=== PATIENT | male | born 1950 | race Caucasian/White ===

== ENCOUNTER 2017-01-26 09:13 | Inpatient (IN) | payer OTHER, MEDICARE ==
[~2017-01-26] VITALS: Ht 171.4 cm; Wt 120.6 kg
--- NOTE | ~2017-01-26 | CATH ---
Cardiac Interventional Report Demographics Patient Name AMAN MCCORMACK JR Gender Male Date of 1950 Age 66 year(s) Patient Number [id number] Date of Study 02/05/2017 Visit Number [id number] Room Number G6317 [place] [id number] Ht 170.18 cm Wt 114.31 kg Referring Liana Primary Physician Physician Erika Garcia Performing Liana Secondary Physician Physician Erika TATE Diagnostic Assisting Physician Physician Interventional Liana Physician Security Tech Physician Erika TATE Findings and Conclusions Interventional Findings and Conclusion PCI- large anterior and lateral ischemia D/W CTS, per their recommendation and discussion with patient and his PCI was planned. PCI ostial/prox LAD 50>0% mid LAD 80>0% mid/distal 80>0% mid LCFX 80>% Interventional Recommendations Routine perclose precautions DAPT 1 yr or greater Risk factor modification Procedure Description The patient was brought to the diagnostic cardiac catheterization-EP laboratory in the fasting, non-sedated state. Informed consent was obtained in the written and verbal form after the risks and benefits were explained. The patient had no further questions and agreed to proceed. The planned puncture-incision site(s) were shaved and prepped with Chloroprep and draped in the usual sterile manner. Conscious sedation and pain control medications were delivered by a registered nurse under physician guidance. Surface ECG rhythm, blood pressure measurement, and pulse oximetry were monitored throughout the procedure. iFR measurement was performed The vessel was entered with a guiding catheter. The iFR wire was normalized and then advanced across the lesion. Measurements were takenof LAD and CIRC Stent Placement: A guiding catheter was used to intubate the vessel. A 0.14 wire was used to cross the lesion. A Drug Eluting Stent was placed. Post placement angiograms were performed. Hemostasis: The sheath(s) was removed. Perclose(s) were tied and hemostasis was achieved. Interventional Cath Status: Urgent Procedure Procedure Type PCI procedure:Drug Eluting Coronary Stent:, LAD, CFX, Additional Imaging:, FFR/iFR:, Initial Vessel, Add'l Vessel Indications: Chest pain and Shortness of breath. The procedure was explained in detail to the patient. Risks, complications and alternative treatments were reviewed. Written consent was obtained. Angiographic Findings Dominance: Right Cardiac Arteries and Lesion Findings LAD: Lesion on Mid LAD: Distal subsection.80% stenosis 12 mm length reduced to 0%. Pre procedure LAURA II flow was noted. Post Procedure LAURA III flow was present. The guidewire cross was successful.A good run off was present.The lesion was diagnosed as a low risk lesion.Culprit lesion. Devices used - Promus Premier 2.25 x 12 Stent. 1 inflation(s) to a max pressure of: 14 hank. Lesion on Mid LAD: Mid subsection.0% stenosis 16 mm length reduced to 0%. Pre procedure LAURA II flow was noted. Post Procedure LAURA III flow was present. The guidewire cross was successful.A good run off was present.The lesion was diagnosed as a low risk lesion.Culprit lesion. Devices used - Emerge Balloon 2.5 x 15. 1 inflation(s) to a max pressure of: 10 hank. - Promus Premier 2.75 x 16 Stent. 1 inflation(s) to a max pressure of: 15 hank. Lesion on Prox LAD: Ostial.50% stenosis 12 mm length reduced to 0%. Pre procedure LAURA III flow was noted. Post Procedure LAURA III flow was present. The guidewire cross was successful.A good run off was present.The lesion was diagnosed as a low risk lesion.Culprit lesion. Devices used - Promus Premier 3.5 x 12 Stent. 2 inflation(s) to a max pressure of: 12 hank. LCx: Lesion on Mid CX: Mid subsection.80% stenosis 12 mm length reduced to 0%. Pre procedure LAURA III flow was noted. Post Procedure LAURA III flow was present. The guidewire cross was successful.A good run off was present.The lesion was diagnosed as a moderate risk lesion.Culprit lesion. Devices used - Emerge Balloon 3.0 x 12. 1 inflation(s) to a max pressure of: 6 hank. - Promus Premier 3.5 x 12 Stent. 1 inflation(s) to a max pressure of: 15 hank. - Verrata Pressure Wire. Number of passes: 1. Coronary Tree Procedure Data Procedure Date Date: 02/05/2017Start: 03:16 PMEnd: 04:51 PM Entry Locations - The Right Femoral artery access attempt was not successful. - Retrograde Percutaneous access was performed through the Left Femoral artery (Primary location). A 7 Fr sheath was inserted. Hemostasis was successfully obtained using Perclose ProGlide ([place]). Closure Comments: deployed by gabriel. Procedure Medications Order and Administration + + + + + !Time !Medication !Dosage !Route ! + + + + + 02/05/2017 03:00 !Fentanyl !50 mcg !I.V. ! !PM ! ! ! ! + + + + 02/05/2017 03:12 !Versed !1 mg !I.V. ! !PM ! ! ! ! + + + + + 02/05/2017 03:15 !Oxygen !2 l/min !NC ! !PM ! ! ! ! + + + + 02/05/2017 03:16 !Oxygen !4 l/min !NC ! !PM ! ! ! ! + + + + + !02/05/2017 03:17 !Oxygen !6 l/min !NC ! !PM ! ! ! ! + + + + + !02/05/2017 03:27 !Angiomax (Bivalirudin) !85 mg !I.V. bolus ! !PM !(ACC_5) ! ! ! + + + + + !02/05/2017 03:28 !Angiomax (Bivalirudin) !1.75 mg/kg/hr!I.V. drip ! !PM !(ACC_5) ! ! ! + + + + + 02/05/2017 03:30 !Integrilin (ACC_7) !20.4 mg !I.V. bolus ! !PM ! ! ! ! + + + + 02/05/2017 03:40 !Integrilin (ACC_7) !20.4 mg !I.V. bolus ! !PM ! ! ! ! + + + + + !02/05/2017 03:53 !Fentanyl !50 mcg !I.V. ! !PM ! ! ! ! + + + + + !02/05/2017 04:02 !Nitroglycerin !200 mcg !I.C. ! !PM ! ! ! ! + + + + + 02/05/2017 04:12 !Versed !1 mg !I.V. ! !PM ! ! ! ! + + + + + !02/05/2017 04:25 !Fentanyl !50 mcg !I.V. ! !PM ! ! ! ! + + + + + !02/05/2017 04:25 !Fentanyl !50 mcg !I.V. ! !PM ! ! ! ! + + + + + !02/05/2017 04:26 !Brilinta (Ticagrelor) !180 mg !P.O. ! !PM !(ACC_20) ! ! ! + + + + + !02/05/2017 04:26 !Angiomax (Bivalirudin) ! !I.V. drip ! !PM !(ACC_5) ! ! ! + + + + + !02/05/2017 04:33 !Integrilin (ACC_7) !2 mcg/kg/min !I.V. bolus ! !PM ! ! ! ! + + + + + Devices Used - A6 Fr. EBU 4 Guide Catheterwas used for:LAD Intervention. Contrast Material - Isovue [id number] ml Fluoroscopy Time: Diagnostic: 17:54 minutes. Total: 17:54 minutes. Fluoroscopy Dose: Diagnostic: 3783 mGy. Total: 3783 mGy. Estimated Blood Loss: 100 ml. Additional [facility] PCI Information PCI Indication:PCI for high risk Non-STEMI or unstable angina. Medical History Allergies - No known allergies. Risk Factors The patient risk factors include:obesity, hypercholesterolemia, hypertension, insulin-treated diabetes mellitus, last creatinine: 1.4 mg/dl, creatinine clearance: 86.18 ml/min, dyslipidemia and prior heart failure . Admission Data Admission Date: 01/26/2017 Admission Time: 10:54 AM Admit Source: Emergency department Insurance Payors: Medicare and [facility] [facility]. Admission Medications + +------+------+ +---------+ + + !Medication !Dosage!Times !Last !Last !Administered !Comments ! ! ! !Per !Delivery !Delivery ! ! ! ! ! !Day !Date !Time ! ! ! + +------+------+ +---------+ + + !Beta Tonja! ! !02/03/2017 !12:00 AM !Yes ! ! !(any) ! ! ! ! ! ! ! + +------+------+ +---------+ + + !Aspirin ! ! ! ! ! ! ! !(any) ! ! ! ! ! ! ! + +------+------+ +---------+ + + !Nitrates (iv! ! ! ! ! ! ! !or buccal) ! ! ! ! ! ! ! + +------+------+ +---------+ + + Clinical Evaluation Leading to Procedure Diagnosed on 02/03/2017 10:00 AM. - The patient's CAD presentation was assessed as: Non-STEMI. - Anti-anginal medications were prescribed during the past two weeks. The medication is: Beta Blockers. - The patient has been in a state of heart failure within the past two weeks. - The patient's heart failure status was assessed as NYHA Class IV. VA LV function assessed as:Abnormal. Ejection Fraction - 02/03/2017 - Method: Estimated. EF%: 21. Hemodynamics Condition: Rest O2 Consumption: Estimated: 260.53Heart Rate: 70 bpm Pressures (mmHg) +-----+ + !Site !Pressure ! +-----+ + !AO !154/69 (103) ! +-----+ + Shunts Oxygen Values O2 Capacity 141.44 O2 Consumption 260.53 Discharge Data Discharge Date: 02/07/2017 Hospital Status: Inpatient Signatures dtt: Erika Gaines dtd: 02/05/17 1516 Physician Self Edit
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
--- NOTE | ~2017-01-26 | ESTC ---
Cardiac Perfusion Imaging Demographics Patient Name AMAN MCCORMACK JR Gender Male Patient Number [id number] Race Visit Number [id number] Ethnicity [employer] Room Number G6218 Accession Number [id number] Height 691 inches Date of 1950 Weight 252 pounds Interpreting Liana James Date of study 01/29/2017 Physician Supervising /RORO James NM Technologist Tammy Watson MD Ordering Physician Liana James Stress MD emissions testing technician Stress ECG Reading Liana James Nurse Shanell Sousa Physician RN Brayan Sadler RN Procedure Procedure Type: Nuclear Stress Test:Cardiolite Stress Test Procedure Start time: 01/29/2017 00:00 Indications: Chest pain. Risk Factors The patient risk factors include:obesity, hypertension, insulin treated diabetes mellitus, dyslipidemia and prior heart failure . Conclusions Summary Enlarged LV. Large anterior,lateral and inferior moderate to severe ischemia. Basal small inferior severe defect consistent with prior NE. LVEF:37%. Inferior and basal anterior severe hypokinesia and moderate lateral hypokinesia. Stress Protocols Resting ECG Paced rythm. Pre-stress physical exam: Un changed. Predicted HR: 156 bpm ECG Findings No ECG changes suggestive of ischemia. Arrhythmias No rhythm abnormality. Symptoms CP. SOB. MILNER. Stress Interpretation Lexiscan cardiolite with normal hemodynamic response. No EKG changes of ischemia. No arrythmias. Imaging Results Applied corrections - Motion correction applied High risk findings Summed scores - Summed stress score: 17 - Summed rest score: 16 - Summed difference score: 1 Stress ejection Ejection fraction:37 % EDV :226 ml ESV :143 ml Stroke volume :83 ml LV mass :228 gr LV size:Enlarged LV LV systolic function impairment: Moderate Imaging Protocols Rest Stress Isotope:Tc99m Sestamibi IV Isotope: Tc99m Sestamibi IV Isotope dose:15.9 mCi Isotope dose:48 mCi Date:01/29/2017 07:52 Date:01/29/2017 10:00 Technique: SPECT Technique: Gated Supine SPECT Supine IV remains in place after procedure. Procedure Medications - Regadenoson (Lexiscan) 0.4 mg IV over 10-15 sec. I.V. . Medical History Admission Data Admission date: 01/26/2017 Admission Time: 10:54 Hospital Status: Inpatient. Signatures dtt: Erika Gaines dtd: 01/29/17 0000 Physician Self Edit
--- NOTE | ~2017-01-26 | CATH ---
Cardiac Diagnostic Report Demographics Patient Name AMAN MCCORMACK JR Gender Male Date of 1950 Age 66 year(s) Patient Number [id number] Date of Study 02/03/2017 Visit Number [id number] Room Number G63[address] [place] [id number] Ht 170.18 cm Wt 114.31 kg Referring Liana Primary Physician Physician Erika TATE Performing Liana Secondary Physician Physician Erika TATE Diagnostic Liana Assisting Physician Physician Erika TATE Interventional Physician Icu Registered Nurse Physician Findings and Conclusions Diagnostic Findings and Conclusion Severe 3 vessel disease LVEDP 21 Diagnostic Recommendations CTS consult Procedure Description The patient was brought to the diagnostic cardiac catheterization-EP laboratory in the fasting, non-sedated state. Informed consent was obtained in the written and verbal form after the risks and benefits were explained. The patient had no further questions and agreed to proceed. The planned puncture-incision site(s) were shaved and prepped with ChloraPrep and draped in the usual sterile manner. Conscious sedation, supplemental oxygen, and pain control medications were delivered by a registered nurse under physician guidance. Surface ECG rhythm, blood pressure measurement, and pulse oximetry were monitored throughout the procedure. Arterial access. The access site was infiltrated with lidocaine. The vessel was entered with the Seldinger technique. A sheath was advanced into the vessel and used for catheter placement. Selective left coronary angiography. A catheter was advanced into the left coronary vessel ostium under Fluoroscopic guidance. Contrast was injected by hand. Images were obtained in multiple projections. Selective right coronary angiography. A catheter was advanced into the right coronary vessel ostium under fluoroscopic guidance. Contrast was injected by hand. Images were obtained in multiple projections. Left heart catheterization. A catheter was advanced across the aortic valve to the left ventricle under fluoroscopic guidance. Resting hemodynamics were obtained. Arterial artery hemostasis was achieved. The patient was transferred to a regular nursing floor via cart accompanied by a nurse. The patient left the laboratory in stable condition. Procedure Procedure Type Diagnostic procedure:Angiography:, Coronary Angios w/[facility] Indications: Positive Nuclear: High. The procedure was explained in detail to the patient. Risks, complications and alternative treatments were reviewed. Written consent was obtained. Medications Reviewed with Patient prior to Procedure. Angiographic Findings Dominance: Right Cardiac Arteries and Lesion Findings LMCA: Abnormal.luminal irregularities LAD: Abnormal.Type III diffuse disease ISP 80% x 2 LCx: Abnormal.Large 2 om 80% focal lesion RCA: Abnormal.mid 100% , distal RCA fills faintly Procedure Data Procedure Date Date: 02/03/2017Start: 03:18 PMEnd: 04:23 PM Entry Locations - Retrograde Percutaneous access was performed through the Right Femoral artery (Primary location). A 7 Fr sheath was inserted. Hemostasis was successfully obtained using Angio-Seal STS PLUS ([place]). Closure Comments: by Cheyenne Sharp Procedure Medications Order and Administration + + + +-------+ !Time !Medication !Dosage !Route ! + + + +-------+ !02/03/2017 03:07 PM !Fentanyl !50 mcg !I.V. ! + + + +-------+ 02/03/2017 03:16 PM !Versed !1 mg !I.V. ! + + + +-------+ 02/03/2017 03:19 PM !Fentanyl !50 mcg !I.V. ! + + + +-------+ !02/03/2017 03:29 PM !Oxygen !2 l/min !NC ! + + + +-------+ Devices Used - A6 Fr. BS JL 4 Diag. Catheterwas used for:Left coronary angiography. - A6 Fr. BS JR 4 Diag. Catheterwas used for:Right coronary angiography. - A6 Fr. BS JL 5 Diag. Catheterwas used for:Left coronary angiography. Contrast Material - Isovue [id number] ml Fluoroscopy Time: Diagnostic: 5:30 minutes. Total: 5:30 minutes. Fluoroscopy Dose: Diagnostic: 1854 mGy. Total: 1854 mGy. Estimated Blood Loss: 5 ml. Medical History Allergies - No known allergies. Risk Factors The patient risk factors include:obesity, hypercholesterolemia, hypertension, insulin-treated diabetes mellitus, last creatinine: 1.4 mg/dl, creatinine clearance: 86.18 ml/min, dyslipidemia and prior heart failure . Admission Data Admission Date: 01/26/2017 Admission Time: 10:54 AM Admit Source: Emergency department Insurance Payors: Medicare and [employer] [facility]. Admission Medications + +------+------+ +---------+ + + !Medication !Dosage!Times !Last !Last !Administered !Comments ! ! ! !Per !Delivery !Delivery ! ! ! ! ! !Day !Date !Time ! ! ! + +------+------+ +---------+ + + !Beta Tonja! ! !02/03/2017 !12:00 AM !Yes ! ! !(any) ! ! ! ! ! ! ! + +------+------+ +---------+ + + !Aspirin ! ! ! ! ! ! ! !(any) ! ! ! ! ! ! ! + +------+------+ +---------+ + + !Nitrates (iv! ! ! ! ! ! ! !or buccal) ! ! ! ! ! ! ! + +------+------+ +---------+ + + Clinical Evaluation Leading to Procedure Diagnosed on 02/03/2017 10:00 AM. - The patient's CAD presentation was assessed as: Non-STEMI. - Anti-anginal medications were prescribed during the past two weeks. The medication is: Beta Blockers. - The patient has been in a state of heart failure within the past two weeks. - The patient's heart failure status was assessed as NYHA Class IV. VA LV function assessed as:Abnormal. Ejection Fraction - 02/03/2017 - Method: Estimated. EF%: 21. Hemodynamics Condition: Rest O2 Consumption: Estimated: 1415.10Heart Rate: 70 bpm Pressures (mmHg) +-----+ + !Site !Pressure ! +-----+ + !AO !157/23 (74) ! +-----+ + !LV !146/5 ,12 ! +-----+ + !LV !161/15 ,21 ! +-----+ + Shunts Oxygen Values O2 Capacity 141.44 O2 Consumption 1415.1 Discharge Data Discharge Date: 02/07/2017 Hospital Status: Inpatient Signatures dtt: Erika Gaines dtd: 02/03/17 1518 Physician Self Edit
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
--- NOTE | ~2017-01-26 | HP ---
PATIENT'S NAME: KSENIA NEWTON [facility] AGE: 66 Y [address] ROOM: [place] [address] [facility] ADMIT DATE: 01/26/2017 History & Physical DISCHARGE DATE: FAMILY PHYSICIAN: PHYSICIAN, NO ATTENDING PHYSICIAN: Radha RAYMOND DATE OF SERVICE: ADDENDUM: ASSESSMENT AND PLAN: 1. Persistent atrial fibrillation. The patient has a history of persistent atrial fibrillation, with multiple ablation trials and currently on SECTION [employer]ARD[employer]- D. The patient is on Eliquis 5 mg b.i.d. However, we will hold Eliquis as the patient has anemia at least compared to 2015, the patient's hemoglobin dropped from 13.1 to 7.6, and also patient has acute kidney injury, and we will hold today's dose as the patient probably need to be on lower dose of anticoagulation due to his recent kidney dysfunction. We will hold Eliquis for now and restart, when the patient is clinically stable with lower dose or appropriate dose. To continue Toprol-XL. MD KARLO CORRALES/virgilio /[id number] D: [id number] T: [id number] HISTORY & PHYSICAL
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
--- NOTE | ~2017-01-26 | ECHO ---
Transthoracic Echocardiography Report (TTE) Demographics Patient Name KSENIA NEWTON Date of Study 01/27/2017 (TANJA [place]IN[place] Patient Number [id number] Visit Number [id number] Date of 1950 Room Number G6202 Gender Male Number Age 66 year(s) Referring Bleach Boiler Packer Bharath Hernandez RVT, Physician RDCS Physician Interpreting Liana Lighting Engineer Physician Erika TATE Supervising Ordering Mayo Garcia MD/CANDACEP Physician Nurse Stress Transportation Dispatch Manager Conclusions Summary Definity used to better delineate endocardial borders.TDS. The estimated left ventricular ejection fraction is 30%. Mild to moderate concentric left ventricular hypertrophy with normal internal dimension.WMAs cannot be confidently commented on. Diastolic assessment reveals Grade III restrictive diastolic dysfunction. The interventricular septum is flattened which is consistent with right ventricular pressure / and or volume overload. Dilated right ventricle with reduced function. The left atrium is mildly dilated. The right atrium is moderately dilated. Dilated IVC with poor inspiratory collapse consistent with elevated RA pressure. Moderate tricuspid regurgitation by color Doppler. There is moderate pulmonary hypertension. The pulmonary pressure (RVSP) is 54 mmHg. Procedure Type of Study TTE procedure:2D Echocardiogram, Echo with Contrast. Procedure Date Date: 01/27/2017 Start: 10:35 AM Study Location: Inpatient Portable Technical Quality: Fair due to body habitus. Indications:CHF. Appropriate Use Criteria: 8 Patient Status: Routine Contrast Medium: Definity. Amount - 2 ml Rhythm: NSR HR: 78 bpm BP: 157/75 mmHg Allergies - No known allergies. M-Mode/2D Measurements LV Diastolic Dimension: 4.8 cm LV Systolic Dimension: 3.83 cm LV Septum Diastolic: 1.4 cm LV PW Diastolic: 1.28 cm AO Root Dimension: 2.5 cm Cardiac Output: 3.38 l/min AV Cusp Separation: 1.8 cm RV Diastolic Dimension: 5.02 cm LA volume: 63 ml LVOT: 2 cm RV Base: 3.86 cm LVOT VTI: 13.8 cm RV Mid: 4.93 cm LV Stroke volume: 43.33 ml TAPSE: 1.66 cm TDI-S': 8.22 cm/s Doppler Measurements AV Peak Velocity: 1.32 m/s MV Peak E-Wave: 0.93 m/s AV Peak Gradient: 6.97 mmHg MV Peak A-Wave: 0.26 m/s AV Mean Gradient: 6 mmHg MV E/A Ratio: 3.54 LVOT Peak Velocity: 0.88 m/s MV P1/2t: 85 msec TR Gradient:38.94 mmHg PV Peak Velocity: 0.95 m/s Estimated RAP:15 mmHg PV Peak Gradient: 3.57 mmHg Estimated RVSP: 54 mmHg Estimated PASP: 53.94 mmHg E' Septal Velocity: 0.06 m/s A' Septal Velocity: 0.03 m/s E' Lateral Velocity: 0.1 m/s A' Lateral Velocity: 0.04 m/s Findings Left Ventricle Mild to moderate concentric left ventricular hypertrophy.LVEF is about 30%.LV internal diameter is normal.WMAs are difficult to comment on. Diastolic assessment reveals Grade III restrictive diastolic dysfunction. The interventricular septum is flattened which is consistent with right ventricular pressure / and or volume overload. Right Ventricle Dilated right ventricle with reduced function. Left Atrium The left atrium is mildly dilated. There is no evidence of patent foramen ovale or atrial septal defect by color Doppler. Right Atrium The right atrium is moderately dilated. Dilated IVC with poor inspiratory collapse consistent with elevated RA pressure. Mitral Valve Normal mitral valve structure and function. Trivial mitral regurgitation by color Doppler. Aortic Valve The aortic valve is mildly sclerotic. Tricuspid Valve Moderate tricuspid regurgitation by color Doppler. There is moderate pulmonary hypertension. The pulmonary pressure (RVSP) is 54 mmHg. Pulmonic Valve Normal pulmonic valve structure and function. Trivial pulmonic valve regurgitation by color Doppler. Pericardial Effusion No evidence of pericardial effusion. Miscellaneous Visualized portions of the aortic root and ascending aorta appear normal in size. Pleural Effusion Pleural effusion present. Contractility Score LV regional wall motion:(0-Non visualized 1-Normal 2-Hypokinesis 3-Akinesis 4-Dyskinesis 5-Aneurysm) Signature dtt: Erika Gaines dtd: 01/27/17 1035 Physician Self Edit
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
[~2017-01-26 09:13] MED LIST changes: -ASPIRIN (CHILDR81 MG PO; -COREG12.5 MG PO; -FEOSOL325 MG PO; -JARDIANCE10 MG PO; -K-TAB 10MEQ10 MEQ PO; -K-TAB ER20 MEQ PO; -LASIX20 MG PO; -LEVAQUIN 750 M750 MG PO; -LIPITOR80 MG PO; -MACROBID100 MG PO; -MINERAL PO; -PEPTO BISMOL LIQ1 ML PO; -PLAVIX75 MG PO; -PROTONIX40 MG PO; -SLEEP AID50 MG PO; -SYNTHROID25 MCG PO; -TROSPIUM CHLORI20 MG PO; -TURMERIC500 MG PO; -VICTOZA 2-0.6 MG/0.1 SUB-Q; -[UNRECOGNIZED DRUG - OTHER] PO
[2017-01-26 10:04] LABS: BICARBONATE 20.4 mmol/L (18.0-23.0); PCO2 37 mmHg (35-45)
[2017-01-26 10:05] LABS: PO2 40 mmHg (80-90)
[2017-01-26 10:06] LABS: HEMATOCRIT 23.2 % (37.0-53.0); MCHC 32.8 gm/dL (32.0-36.5); MCV 81.7 fl (83.0-98.0); MPV 10.3 fl (9.4-12.4); PLATELET COUNT 183 K/uL (150-450); RDW-CV 14.2 % (11.9-14.6); WBC 21.3 K/uL (4.0-11.0)
[2017-01-26 10:07] LABS: HEMOGLOBIN 7.6 g/dL (11.0-16.0); MCH 26.8 pg (27.0-34.0); RBC 2.84 M/uL (3.50-5.50)
[2017-01-26 10:14] LABS: INR - (THERAPEUTIC) 1.07 (0.92-1.07); PROTIME 11.2 SECONDS (9.8-11.4); PTT 37 SECONDS (25-32)
[2017-01-26 10:29] LABS: ALBUMIN 2.2 gm/dL (3.5-5.0); ALK PHOS 86 IU/L (33-138); ALT 21 IU/L (12-78); ANION GAP 17.6 (10.0-19.0); AST 17 IU/L (10-40); BLOOD UREA NITROGEN 56 mg/dL (6-24); CALCIUM 8.4 mg/dL (8.5-10.5); CHLORIDE 89 mMol/L (96-110); CO2 20 mMol/L (22-32); CPK 80 IU/L (35-332); CREATININE 2.2 mg/dL (0.6-1.3); ESTIMATED GFR (MDRD EQUATION) 30; POTASSIUM 3.6 mMol/L (3.7-5.1); SODIUM 123 mMol/L (135-145); TOTAL BILIRUBIN 0.6 mg/dL (0.0-1.5); TOTAL PROTEIN 7.3 g/dL (6.0-8.4)
[2017-01-26 10:35] LABS: ABSOLUTE NEUTROPHIL CT (ANC) 20.2 K/uL (1.4-9.0); BANDED NEUTROPHILS % 19 %; LYMPHOCYTE # 0.4 K/uL (0.8-4.0); LYMPHOCYTE % 2 %; MONOCYTE # 0.6 K/uL (0.0-1.0); SEGMENTED NEUTROPHIL # 16.2 K/uL (1.4-9.0); SEGMENTED NEUTROPHIL % 76 %
[2017-01-26 12:21] LABS: BILIRUBIN URINE NEGATIVE (NEGATIVE); BLOOD URINE 250 /UL (NEGATIVE); COLOR URINE YELLOW (YELLOW); GLUCOSE URINE 250 mg/dL (NEGATIVE); KETONE URINE 5 mg/dL (NEGATIVE); LEUKOCYTES URINE 500 /UL (NEGATIVE); NITRITE URINE POSITIVE (NEGATIVE); PROTEIN URINE 500 mg/dL (NEGATIVE); SPEC GRAVITY URINE 1.015 (1.003-1.035); TURBIDITY URINE 2+ (CLEAR); UROBILINOGEN URINE NORMAL (NORMAL)
[2017-01-26 12:30] LABS: BACTERIA URINE FEW (NEGATIVE); EPITHELIAL URINE RARE #/HPF (NEGATIVE); WBC URINE 20-50 #/HPF (NEGATIVE)
[2017-01-26] MEDS ORDERED: NEURONTIN400 MG PO (13:42)
[2017-01-26] MEDS ORDERED: TURMERIC500 MG PO (13:47)
[2017-01-26] MEDS ORDERED: SLEEP AID50 MG PO (13:47)
[2017-01-26] MEDS ORDERED: PEPTO BISMOL LIQ1 ML PO (13:47)
[2017-01-26] MEDS ORDERED: SYNTHROID25 MCG PO (13:48)
[2017-01-26] MEDS ORDERED: VICTOZA 2-0.6 MG/0.1 SUB-Q (13:49)
[2017-01-26] MEDS ORDERED: MACROBID100 MG PO (13:50)
[2017-01-26] MEDS ORDERED: MINERAL PO (13:51)
[2017-01-26] MEDS ORDERED: [UNRECOGNIZED DRUG - OTHER] PO (13:51)
[2017-01-26] MEDS ORDERED: TROSPIUM CHLORI20 MG PO (13:51)
[2017-01-26 18:28] LABS: ALBUMIN 1.9 gm/dL (3.5-5.0); ANION GAP 15.1 (10.0-19.0); CALCIUM 8.1 mg/dL (8.5-10.5); POTASSIUM 4.1 mMol/L (3.7-5.1); TOTAL BILIRUBIN 0.5 mg/dL (0.0-1.5); TOTAL PROTEIN 6.6 g/dL (6.0-8.4)
[2017-01-26 22:13] LABS: PCO2 29 mmHg (35-45); PO2 56 mmHg (80-90)
[2017-01-27 00:36] LABS: HEMOGLOBIN 10.8 g/dL (11.0-16.0)
[2017-01-27 04:57] LABS: HEMATOCRIT 31.9 % (37.0-53.0); HEMOGLOBIN 10.6 g/dL (11.0-16.0); MCHC 33.2 gm/dL (32.0-36.5); MCV 80.6 fl (83.0-98.0); MPV 10.4 fl (9.4-12.4); RDW-CV 14.6 % (11.9-14.6)
[2017-01-27 05:05] LABS: MCH 26.8 pg (27.0-34.0); PLATELET COUNT 137 K/uL (150-450); RBC 3.96 M/uL (3.50-5.50); WBC 16.4 K/uL (4.0-11.0)
[2017-01-27 05:14] LABS: ALBUMIN 1.9 gm/dL (3.5-5.0); ANION GAP 15.3 (10.0-19.0); CALCIUM 8.1 mg/dL (8.5-10.5); CREATININE 2.4 mg/dL (0.6-1.3); POTASSIUM 4.3 mMol/L (3.7-5.1); TOTAL BILIRUBIN 0.7 mg/dL (0.0-1.5); TOTAL PROTEIN 6.7 g/dL (6.0-8.4)
[2017-01-27 05:42] LABS: ABSOLUTE NEUTROPHIL CT (ANC) 15.4 K/uL (1.4-9.0); BANDED NEUTROPHILS % 18 %; LYMPHOCYTE # 0.5 K/uL (0.8-4.0); LYMPHOCYTE % 3 %; MONOCYTE # 0.3 K/uL (0.0-1.0); SEGMENTED NEUTROPHIL # 12.5 K/uL (1.4-9.0); SEGMENTED NEUTROPHIL % 76 %
[2017-01-27 10:00] LABS: BICARBONATE 16.6 mmol/L (18.0-23.0); PCO2 25 mmHg (35-45); PO2 70 mmHg (80-90)
[2017-01-27 11:09] LABS: CPK 56 IU/L (35-332)
[2017-01-27 16:17] LABS: HEMATOCRIT 32.3 % (37.0-53.0)
[2017-01-27 16:33] LABS: ALBUMIN 1.8 gm/dL (3.5-5.0); CALCIUM 8.1 mg/dL (8.5-10.5); CREATININE 2.6 mg/dL (0.6-1.3); PHOSPHORUS 2.2 mg/dL (2.5-4.9)
[2017-01-27 22:25] LABS: CPK 38 IU/L (35-332)
[2017-01-28 05:11] LABS: BASOPHIL % 0.2 %; EOSINOPHIL # 0.3 K/uL (0.0-0.5); EOSINOPHIL % 1.8 %; HEMATOCRIT 32.6 % (37.0-53.0); IMMATURE GRANULOCYTE # 0.4 K/uL (0.0-0.3); IMMATURE GRANULOCYTE % 2.5 %; LYMPHOCYTE # 1.1 K/uL (0.8-4.0); LYMPHOCYTE % 6.8 %; MCH 27.2 pg (27.0-34.0); MCHC 33.7 gm/dL (32.0-36.5); MCV 80.5 fl (83.0-98.0); MONOCYTE # 1.5 K/uL (0.0-1.0); MONOCYTE % 9.5 %; MPV 10.3 fl (9.4-12.4); NEUTROPHIL # (ANC) 12.4 K/uL (1.4-9.0); NEUTROPHIL % 79.2 %; NRBC % 0 /100WBC (0-0.00); PLATELET COUNT 157 K/uL (150-450); RBC 4.05 M/uL (3.50-5.50); WBC 15.7 K/uL (4.0-11.0)
[2017-01-28 05:37] LABS: CALCIUM 8.2 mg/dL (8.5-10.5); CREATININE 2.6 mg/dL (0.6-1.3); TOTAL PROTEIN 6.7 g/dL (6.0-8.4)
[2017-01-28 05:40] LABS: ALBUMIN 1.8 gm/dL (3.5-5.0); TOTAL BILIRUBIN 0.5 mg/dL (0.0-1.5)
[2017-01-28 05:47] LABS: MAGNESIUM 2.6 mg/dL (1.8-2.6)
[2017-01-28 17:08] LABS: HEMATOCRIT 34.8 % (37.0-53.0); HEMOGLOBIN 11.2 g/dL (11.0-16.0)
[2017-01-29 04:02] LABS: HEMATOCRIT 35.4 % (37.0-53.0); HEMOGLOBIN 11.5 g/dL (11.0-16.0); MCH 26.6 pg (27.0-34.0); MCHC 32.5 gm/dL (32.0-36.5); MCV 81.9 fl (83.0-98.0); MPV 10.1 fl (9.4-12.4); RBC 4.32 M/uL (3.50-5.50); RDW-CV 15.2 % (11.9-14.6); WBC 13.9 K/uL (4.0-11.0)
[2017-01-29 04:03] LABS: PLATELET COUNT 190 K/uL (150-450)
[2017-01-29 04:17] LABS: ANION GAP 15.7 (10.0-19.0); CALCIUM 8.1 mg/dL (8.5-10.5); MAGNESIUM 2.5 mg/dL (1.8-2.6); POTASSIUM 3.7 mMol/L (3.7-5.1)
[2017-01-29 04:58] LABS: ABSOLUTE NEUTROPHIL CT (ANC) 12.4 K/uL (1.4-9.0); BANDED NEUTROPHIL # 1.3 K/uL (0.0-0.1); BANDED NEUTROPHILS % 9 %; LYMPHOCYTE # 1.1 K/uL (0.8-4.0); LYMPHOCYTE % 8 %; SEGMENTED NEUTROPHIL # 11.1 K/uL (1.4-9.0); SEGMENTED NEUTROPHIL % 80 %
[2017-01-29 16:13] LABS: HEMATOCRIT 38.2 % (37.0-53.0); HEMOGLOBIN 12.3 g/dL (11.0-16.0)
[2017-01-30 04:26] LABS: HEMATOCRIT 35.2 % (37.0-53.0); HEMOGLOBIN 11.4 g/dL (11.0-16.0); MCH 26.3 pg (27.0-34.0); MCHC 32.4 gm/dL (32.0-36.5); MCV 81.1 fl (83.0-98.0); MPV 9.7 fl (9.4-12.4); RBC 4.34 M/uL (3.50-5.50); RDW-CV 15.2 % (11.9-14.6); WBC 13.1 K/uL (4.0-11.0)
[2017-01-30 04:32] LABS: PLATELET COUNT 240 K/uL (150-450)
[2017-01-30 04:40] LABS: ALBUMIN 1.8 gm/dL (3.5-5.0); ANION GAP 12.4 (10.0-19.0); CALCIUM 7.8 mg/dL (8.5-10.5); CREATININE 1.6 mg/dL (0.6-1.3); PHOSPHORUS 2.4 mg/dL (2.5-4.9); POTASSIUM 3.4 mMol/L (3.7-5.1)
[2017-01-30 05:32] LABS: ABSOLUTE NEUTROPHIL CT (ANC) 10.4 K/uL (1.4-9.0); BANDED NEUTROPHIL # 0.1 K/uL (0.0-0.1); BANDED NEUTROPHILS % 1 %; LYMPHOCYTE # 0.7 K/uL (0.8-4.0); LYMPHOCYTE % 5 %; MONOCYTE # 1.3 K/uL (0.0-1.0); SEGMENTED NEUTROPHIL # 10.2 K/uL (1.4-9.0); SEGMENTED NEUTROPHIL % 78 %
[2017-01-31 04:03] LABS: BASOPHIL % 0.3 %; EOSINOPHIL # 0.3 K/uL (0.0-0.5); EOSINOPHIL % 1.9 %; HEMOGLOBIN 11.4 g/dL (11.0-16.0); IMMATURE GRANULOCYTE % 6.5 %; LYMPHOCYTE # 1.2 K/uL (0.8-4.0); LYMPHOCYTE % 8.4 %; MCH 26.8 pg (27.0-34.0); MCHC 32.6 gm/dL (32.0-36.5); MCV 82.4 fl (83.0-98.0); MONOCYTE # 0.9 K/uL (0.0-1.0); MPV 9.7 fl (9.4-12.4); NEUTROPHIL # (ANC) 11.3 K/uL (1.4-9.0); NEUTROPHIL % 76.9 %; NRBC % 0.1 /100WBC (0-0.00); PLATELET COUNT 266 K/uL (150-450); RBC 4.25 M/uL (3.50-5.50); RDW-CV 15.1 % (11.9-14.6); WBC 14.7 K/uL (4.0-11.0)
[2017-01-31 04:15] LABS: ANION GAP 10.9 (10.0-19.0); CALCIUM 7.7 mg/dL (8.5-10.5); CREATININE 1.5 mg/dL (0.6-1.3); POTASSIUM 3.9 mMol/L (3.7-5.1)
[2017-02-01 05:34] LABS: MCV 80.8 fl (83.0-98.0); MPV 9.4 fl (9.4-12.4); RDW-CV 15.2 % (11.9-14.6); WBC 8.1 K/uL (4.0-11.0)
[2017-02-01 05:35] LABS: HEMATOCRIT 49.1 % (37.0-53.0); MCH 26.3 pg (27.0-34.0); MCHC 32.6 gm/dL (32.0-36.5); PLATELET COUNT 153 K/uL (150-450); RBC 6.08 M/uL (3.50-5.50)
[2017-02-01 05:42] LABS: ANION GAP 13.5 (10.0-19.0); CALCIUM 7.9 mg/dL (8.5-10.5); CREATININE 1.4 mg/dL (0.6-1.3); MAGNESIUM 2.2 mg/dL (1.8-2.6); POTASSIUM 4.5 mMol/L (3.7-5.1)
[2017-02-01 06:26] LABS: ABSOLUTE NEUTROPHIL CT (ANC) 7.1 K/uL (1.4-9.0); LYMPHOCYTE # 0.5 K/uL (0.8-4.0); LYMPHOCYTE % 6 %; MONOCYTE # 0.3 K/uL (0.0-1.0); SEGMENTED NEUTROPHIL # 7.1 K/uL (1.4-9.0); SEGMENTED NEUTROPHIL % 88 %
[2017-02-02 08:01] LABS: BASOPHIL % 0.2 %; EOSINOPHIL # 0.1 K/uL (0.0-0.5); EOSINOPHIL % 0.9 %; HEMOGLOBIN 10.7 g/dL (11.0-16.0); IMMATURE GRANULOCYTE # 0.6 K/uL (0.0-0.3); IMMATURE GRANULOCYTE % 4.5 %; LYMPHOCYTE # 1.2 K/uL (0.8-4.0); LYMPHOCYTE % 9.3 %; MCV 82.1 fl (83.0-98.0); MONOCYTE # 0.7 K/uL (0.0-1.0); MONOCYTE % 5.7 %; MPV 9.4 fl (9.4-12.4); NEUTROPHIL # (ANC) 10.4 K/uL (1.4-9.0); NEUTROPHIL % 79.4 %; NRBC % 0 /100WBC (0-0.00); WBC 13.1 K/uL (4.0-11.0)
[2017-02-02 08:09] LABS: MCH 26.6 pg (27.0-34.0); MCHC 32.4 gm/dL (32.0-36.5); PLATELET COUNT 298 K/uL (150-450); RBC 4.02 M/uL (3.50-5.50)
[2017-02-02 08:38] LABS: ANION GAP 11.6 (10.0-19.0); CREATININE 1.4 mg/dL (0.6-1.3); POTASSIUM 4.6 mMol/L (3.7-5.1)
[2017-02-03 05:03] LABS: BASOPHIL % 0.3 %; EOSINOPHIL # 0.1 K/uL (0.0-0.5); EOSINOPHIL % 1.4 %; HEMATOCRIT 32.1 % (37.0-53.0); HEMOGLOBIN 10.4 g/dL (11.0-16.0); IMMATURE GRANULOCYTE # 0.4 K/uL (0.0-0.3); IMMATURE GRANULOCYTE % 4.5 %; LYMPHOCYTE # 1.1 K/uL (0.8-4.0); LYMPHOCYTE % 11.9 %; MCH 26.9 pg (27.0-34.0); MCHC 32.4 gm/dL (32.0-36.5); MCV 83.2 fl (83.0-98.0); MONOCYTE # 0.6 K/uL (0.0-1.0); MONOCYTE % 6.8 %; MPV 9.5 fl (9.4-12.4); NEUTROPHIL # (ANC) 7.1 K/uL (1.4-9.0); NEUTROPHIL % 75.1 %; NRBC % 0 /100WBC (0-0.00); PLATELET COUNT 264 K/uL (150-450); RBC 3.86 M/uL (3.50-5.50); WBC 9.4 K/uL (4.0-11.0)
[2017-02-03 05:16] LABS: ANION GAP 9.7 (10.0-19.0); CALCIUM 8.3 mg/dL (8.5-10.5); CREATININE 1.4 mg/dL (0.6-1.3); POTASSIUM 4.7 mMol/L (3.7-5.1)
[2017-02-04 04:51] LABS: CALCIUM 8.1 mg/dL (8.5-10.5); CREATININE 1.4 mg/dL (0.6-1.3)
[2017-02-05 06:13] LABS: CALCIUM 8.5 mg/dL (8.5-10.5); CREATININE 1.4 mg/dL (0.6-1.3)
[2017-02-05 20:42] LABS: BASOPHIL % 0.5 %; EOSINOPHIL # 0.1 K/uL (0.0-0.5); EOSINOPHIL % 1.2 %; HEMATOCRIT 32.3 % (37.0-53.0); HEMOGLOBIN 10.5 g/dL (11.0-16.0); IMMATURE GRANULOCYTE # 0.1 K/uL (0.0-0.3); IMMATURE GRANULOCYTE % 1.3 %; LYMPHOCYTE # 0.9 K/uL (0.8-4.0); LYMPHOCYTE % 10.7 %; MCH 27.1 pg (27.0-34.0); MCHC 32.5 gm/dL (32.0-36.5); MCV 83.5 fl (83.0-98.0); MONOCYTE # 0.6 K/uL (0.0-1.0); MPV 9.3 fl (9.4-12.4); NEUTROPHIL # (ANC) 6.9 K/uL (1.4-9.0); NEUTROPHIL % 79.3 %; NRBC % 0 /100WBC (0-0.00); PLATELET COUNT 273 K/uL (150-450); RBC 3.87 M/uL (3.50-5.50); RDW-CV 14.9 % (11.9-14.6); WBC 8.7 K/uL (4.0-11.0)
[2017-02-06 03:30] LABS: BASOPHIL % 0.3 %; EOSINOPHIL # 0.1 K/uL (0.0-0.5); EOSINOPHIL % 0.9 %; HEMATOCRIT 30.1 % (37.0-53.0); HEMOGLOBIN 9.4 g/dL (11.0-16.0); IMMATURE GRANULOCYTE # 0.1 K/uL (0.0-0.3); IMMATURE GRANULOCYTE % 0.7 %; LYMPHOCYTE # 0.9 K/uL (0.8-4.0); LYMPHOCYTE % 8.8 %; MCH 26.1 pg (27.0-34.0); MCHC 31.2 gm/dL (32.0-36.5); MCV 83.6 fl (83.0-98.0); MONOCYTE # 0.7 K/uL (0.0-1.0); MONOCYTE % 6.6 %; NEUTROPHIL # (ANC) 8.2 K/uL (1.4-9.0); NEUTROPHIL % 82.7 %; NRBC % 0 /100WBC (0-0.00); PLATELET COUNT 237 K/uL (150-450); RDW-CV 14.8 % (11.9-14.6); WBC 9.9 K/uL (4.0-11.0)
[2017-02-06 03:51] LABS: ALBUMIN 2.1 gm/dL (3.5-5.0); ANION GAP 10.6 (10.0-19.0); CALCIUM 8.2 mg/dL (8.5-10.5); CREATININE 1.4 mg/dL (0.6-1.3); POTASSIUM 4.6 mMol/L (3.7-5.1); TOTAL PROTEIN 6.2 g/dL (6.0-8.4)
[2017-02-06 03:55] LABS: TOTAL BILIRUBIN 0.3 mg/dL (0.0-1.5)
[2017-02-07 07:01] LABS: ANION GAP 10.8 (10.0-19.0); CALCIUM 8.9 mg/dL (8.5-10.5); CREATININE 1.5 mg/dL (0.6-1.3); POTASSIUM 4.8 mMol/L (3.7-5.1)
[2017-02-07] MEDS ORDERED: ASPIRIN (CHILDR81 MG PO (13:30)
[2017-02-07] MEDS ORDERED: LIPITOR80 MG PO (13:31)
[2017-02-07] MEDS ORDERED: FEOSOL325 MG PO (13:32)
[2017-02-07] MEDS ORDERED: LEVAQUIN 750 M750 MG PO (13:36)
[2017-02-07] MEDS ORDERED: PROTONIX40 MG PO (13:38)
[2017-02-07] MEDS ORDERED: COREG12.5 MG PO (13:54)
[2017-02-07] MEDS ORDERED: PLAVIX75 MG PO (13:58)
[2017-02-07] MEDS ORDERED: LASIX20 MG PO (14:02)
[2017-02-07] MEDS ORDERED: LASIX40 MG PO (14:03)
[2017-02-07] MEDS ORDERED: K-TAB 10MEQ10 MEQ PO (14:04)
[2017-02-07] MEDS ORDERED: K-TAB ER20 MEQ PO (14:05)
[2017-02-07] MEDS ORDERED: JARDIANCE10 MG PO (14:06)
== END 2017-02-07 15:00 | disposition disaster alternative care site (69) | DRG 853 ==
LOC: GMED 09:13 → GNTU 10:54 → GICU 10:54 → GPCU 10:54 → GICU 01-27 11:49 → GNTU 01-28 12:12 → GICU 02-03 13:13 → GPCU 02-05 16:51
PROVIDERS: Family Medicine; Hospitalist; Internal Medicine Interventional Cardiology; Internal Medicine Nephrology; Physician Assistant; ADMIT Internal Medicine
PROC: 30233N1 Transfusion of Nonautologous Red Blood Cells into Peripheral Vein, Percutaneous Approach (ICD-10-PCS; principal; 2017-01-26)
PROC: B215YZZ Fluoroscopy of Left Heart using Other Contrast (ICD-10-PCS; 2017-02-03)
PROC: B211YZZ Fluoroscopy of Multiple Coronary Arteries using Other Contrast (ICD-10-PCS; 2017-02-03)
PROC: 4A023N7 Measurement of Cardiac Sampling and Pressure, Left Heart, Percutaneous Approach (ICD-10-PCS; 2017-02-03)
PROC: 4A023N7 Measurement of Cardiac Sampling and Pressure, Left Heart, Percutaneous Approach (ICD-10-PCS; 2017-02-05)
PROC: 027135Z Dilation of Coronary Artery, Two Arteries with Two Drug-eluting Intraluminal Devices, Percutaneous Approach (ICD-10-PCS; 2017-02-05)
DX: A41.51 Sepsis due to Escherichia coli [E. coli] (principal); I21.4 Non-ST elevation (NSTEMI) myocardial infarction; J96.01 Acute respiratory failure with hypoxia; N17.9 Acute kidney failure, unspecified; J81.1 Chronic pulmonary edema; I50.22 Chronic systolic (congestive) heart failure; I13.0 Hypertensive heart and chronic kidney disease with heart failure and stage 1 through stage 4 chronic kidney disease, or unspecified chronic kidney disease; K56.7 Ileus, unspecified; E87.2 Acidosis; E87.1 Hypo-osmolality and hyponatremia; N39.0 Urinary tract infection, site not specified; N10 Acute pyelonephritis; I48.1 Persistent atrial fibrillation; E11.40 Type 2 diabetes mellitus with diabetic neuropathy, unspecified; E86.0 Dehydration; D50.9 Iron deficiency anemia, unspecified; R65.20 Severe sepsis without septic shock; E86.1 Hypovolemia; I25.10 Atherosclerotic heart disease of native coronary artery without angina pectoris; B96.20 Unspecified Escherichia coli [E. coli] as the cause of diseases classified elsewhere; I25.5 Ischemic cardiomyopathy; K52.9 Noninfective gastroenteritis and colitis, unspecified; G47.33 Obstructive sleep apnea (adult) (pediatric); E66.9 Obesity, unspecified; K21.9 Gastro-esophageal reflux disease without esophagitis; N40.0 Benign prostatic hyperplasia without lower urinary tract symptoms; E78.00 Pure hypercholesterolemia, unspecified; N18.9 Chronic kidney disease, unspecified; Z90.49 Acquired absence of other specified parts of digestive tract; Z79.82 Long term (current) use of aspirin; Z79.4 Long term (current) use of insulin; Z95.0 Presence of cardiac pacemaker; Z79.01 Long term (current) use of anticoagulants
CPT/HCPCS: A9500; C1725; C1760; C1769; C1874; C1887; C8929; C9113; C9600; J0360; J0583; J0692; J1327; J1630; J1644; J1940; J1956; J2250; J2405; J2785; J3010; J3370; J3475; J3480; J7030; J7040; J7042; J7050; J7060; P9016; Q9957

== ENCOUNTER → 2017-01-26 | Outpatient (CLI) | payer OTHER, MEDICARE ==
[~2017-01-26] MED LIST: ALDACTONE25 MG PO; ASPIR 8181 MG PO; ASPIRIN (CHILDR81 MG PO; B-12500 MCG PO; COREG12.5 MG PO; COREG25 MG PO; COZAAR100 MG PO; CPAP INH; CRESTOR40 MG PO; ELIQUIS5 MG PO; FEOSOL325 MG PO; FISH OIL1000 MG PO; FLOMAX0.4 MG PO; FLUOCIN ACET TOP; FOLIC ACID1 MG PO; GLUCOSE4 GM PO; ISORDIL20 MG PO; JARDIANCE10 MG PO; K-TAB 10MEQ10 MEQ PO; K-TAB ER20 MEQ PO; LANTUS100 UNIT/1 SUB-Q; LASIX20 MG PO; LASIX40 MG PO; LEVAQUIN 750 M750 MG PO; LIPITOR80 MG PO; LISINOPRIL40 MG PO; MACROBID100 MG PO; METAMUCIL PACKE1 PKT PO; METFORMIN HCL1000 MG PO; MINERAL PO; NEURONTIN400 MG PO; NORCO 5-325 TA1 EACH PO; NOVOLOG100 UNIT/M SUB-Q; PEPTO BISMOL LIQ1 ML PO; PLAVIX75 MG PO; PROTONIX40 MG PO; PROZAC20 MG PO; SLEEP AID50 MG PO; SYNTHROID25 MCG PO; TOPAMAX50 MG PO; TOPROL XL200 MG PO; TRIAMCINOLONE454 GM TOP; TROSPIUM CHLORI20 MG PO; TURMERIC500 MG PO; UROXATRAL 10 MG10 MG PO; VICODIN ES 7.51 EACH PO; VICTOZA 2-0.6 MG/0.1 SUB-Q; VITAMIN B-1100 M1 PO; VITAMIN B-650 MG PO; VITAMIN D2000 UNI1 PO; WARFARIN SODIUM5 MG PO; ZINC SULFATE220 M1 PO; [UNRECOGNIZED DRUG - OTHER] PO
== END | disposition disaster alternative care site (69) ==
LOC: GAMB 08:53
DX: R11.0 Nausea (principal); E11.9 Type 2 diabetes mellitus without complications; R10.9 Unspecified abdominal pain
CPT/HCPCS: A0425; A0427; J2405; Q9957

== ENCOUNTER → 2017-03-03 | Outpatient (CLI) | payer OTHER, MEDICARE ==
[~2017-03-03] MED LIST changes: +ASPIRIN (CHILDR81 MG PO; +COREG12.5 MG PO; +FEOSOL325 MG PO; +JARDIANCE10 MG PO; +K-TAB 10MEQ10 MEQ PO; +K-TAB ER20 MEQ PO; +LASIX20 MG PO; +LEVAQUIN 750 M750 MG PO; +LIPITOR80 MG PO; +MACROBID100 MG PO; +MINERAL PO; +PEPTO BISMOL LIQ1 ML PO; +PLAVIX75 MG PO; +PROTONIX40 MG PO; +SLEEP AID50 MG PO; +SYNTHROID25 MCG PO; +TROSPIUM CHLORI20 MG PO; +TURMERIC500 MG PO; +VICTOZA 2-0.6 MG/0.1 SUB-Q; +[UNRECOGNIZED DRUG - OTHER] PO
== END ==
LOC: LGSOS 11:23
DX: R07.9 Chest pain, unspecified (principal)

== ENCOUNTER → 2017-03-03 | Outpatient (CLI) | payer OTHER, MEDICARE ==
[2017-03-03 11:58] LABS: ANION GAP 11.4 (10.0-19.0); CALCIUM 8.9 mg/dL (8.5-10.5); CREATININE 1.9 mg/dL (0.6-1.3); POTASSIUM 4.4 mMol/L (3.7-5.1)
== END | disposition disaster alternative care site (69) ==
LOC: LGSOS 11:43
PROVIDERS: Internal Medicine Interventional Cardiology
DX: R07.9 Chest pain, unspecified (principal)